=== PATIENT | male | born 1950 | race Caucasian/White ===

== ENCOUNTER → 2023-11-01 | Outpatient (CLI) | payer MEDICARE, BC | END | disposition home or self-care (01) | LOC: LABPRL 10:10 | PROVIDERS: ATTEND Family Medicine | CPT/HCPCS: 80053; 83036 ==

== ENCOUNTER → 2024-04-23 | Outpatient (CLI) | payer MEDICARE, BC ==
--- NOTE | 2024-04-24 06:42 | MR ---
EXAMINATION TYPE: MR shoulder RT wo con DATE OF EXAM: 04/23/2024 6:20 PM COMPARISON: None. 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 FINDINGS: Rotator Cuff: Intact infraspinatus tendon. Intact supraspinatus tendon. Some increased signal distall y is present. Marked subdeltoid/subacromial bursa. Heterogeneous thickening of the subscapularis tend on with focal fluid anteriorly. There is moderate atrophy of the teres minor muscle bulk. Acromioclavicular Joint: Moderate spurring with moderate severe capsular hypertrophy. Loss of underly ing fat plane noted. Glenohumeral Joint: [id number] size joint effusion. There is 7 mm bony projection or osteophyt e from the inferior medial aspect of the femoral head. Narrowing is present. Labrum: Heterogeneous increase signal superior labrum consistent with tear. Biceps Tendon: The long head of biceps is in normal location within bicipital groove. Intracapsular p ortion less well-visualized. Bone marrow signal: Subchondral cystic change involving the osseous glenoid. Other: No additional significant abnormality is appreciated. IMPRESSION: 1. 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 2. Superior labral tear. 3. Moderate to large size septated subdeltoid/subacromial fluid collection could reflect bursitis. 4. Some tendinosis of the subscapularis and supraspinatus tendons. 5. Moderate to severe AC joint arthropathy. 6. Mild/moderate teres minor muscular atrophy. [facility], , 04/24/2024 6:40 AM
== END | disposition home or self-care (01) ==
LOC: RADMRIMAIN 17:30
PROVIDERS: ATTEND Family Medicine
DX: M19.011 Primary osteoarthritis, right shoulder (principal); M24.811 Other specific joint derangements of right shoulder, not elsewhere classified; M67.813 Other specified disorders of tendon, right shoulder; M94.8X1 Other specified disorders of cartilage, shoulder; M62.511 Muscle wasting and atrophy, not elsewhere classified, right shoulder